=== PATIENT | male | born 1950 | race Caucasian/White ===

== ENCOUNTER → 2022-02-10 | Outpatient (CLI) | payer OTHER | LOC: US 14:14 | DX: M79.604 Pain in right leg (principal); M79.89 Other specified soft tissue disorders | CPT/HCPCS: 93971 ==

== ENCOUNTER 2022-02-22 13:25 | Emergency (ER) | payer OTHER ==
[2022-02-22 13:45] LABS: HEMOGLOBIN 13.6 gm/dl (14.0-17.5); RED BLOOD COUNT 4.55 M/UL (4.20-5.50); WHITE BLOOD COUNT 7.6 K/UL (4.5-11.0)
[2022-02-22 14:10] LABS: BUN/CREATININE RATIO 15 (0-10)
[2022-02-22] MEDS ORDERED: HYDROCODON-ACE1 EAC4 PO (17:37)
== END 2022-02-22 18:08 | disposition home or self-care (01) ==
LOC: ER1 13:25
PROVIDERS: Physician Assistant Medical
DX: M79.604 Pain in right leg (principal); M79.605 Pain in left leg; R10.31 Right lower quadrant pain; M54.50 Low back pain, unspecified; R60.0 Localized edema; I10 Essential (primary) hypertension; E11.9 Type 2 diabetes mellitus without complications; F17.200 Nicotine dependence, unspecified, uncomplicated; Z86.73 Personal history of transient ischemic attack (TIA), and cerebral infarction without residual deficits
CPT/HCPCS: 72131; 73502; 80053; 82550; 82553; 85025; 93925; 93971; 99284